=== PATIENT | male | born 1965 | race Caucasian/White ===

== ENCOUNTER → 2020-11-20 | Emergency (ER) | payer SELFPAY ==
[~2020-11-20] VITALS: Ht 162.6 cm; Wt 75.3 kg
[~2020-11-20] MED LIST: ASPIRIN 81 MG CHEW TAB PO ONE; IBUPROFEN 600 MG TAB PO STA
[2020-11-20 22:51] LABS: BASOPHILS # (AUTO) 0.1 (0.0-0.1); BASOPHILS % 0.6 % (0.0-1.0); EOSINOPHILS # (AUTO) 0.1 (0.0-0.4); EOSINOPHILS % 0.5 % (0.0-6.0); HEMATOCRIT 37.6 % (38.2-49.6); HEMOGLOBIN 12.8 g/dL (14.0-18.0); LYMPHOCYTES # (AUTO) 3.6 (1.0-3.2); LYMPHOCYTES % 22.2 % (18.0-39.1); MEAN CORPUSCULAR HEMOGLOBIN 30.4 pg (28-32); MEAN CORPUSCULAR VOLUME 89.3 fL (81-99); MONOCYTES # (AUTO) 1.2 (0.2-0.8); MONOCYTES % 7.6 % (4.4-11.3); NEUTROPHILS % 68.5 % (38.7-80.0); PLATELET COUNT 411 x10e3/uL (140-360); RED BLOOD COUNT 4.21 x10e6/uL (4.3-5.7)
[2020-11-20 23:08] LABS: ALANINE AMINOTRANSFERASE 58 IU/L (0-55); ALBUMIN 4.2 g/dL (3.5-5.0); ALBUMIN/GLOBULIN RATIO 1.4 (0.8-2.0); ALKALINE PHOSPHATASE 72 IU/L (40-150); ANION GAP 16.3 mmol/L (8-16); BLOOD UREA NITROGEN 12 mg/dL (7-26); BUN/CREATININE RATIO 12 (6-25); CALCIUM 9.4 mg/dL (8.4-10.2); CARBON DIOXIDE 22 mmol/L (22-29); CHLORIDE 105 mmol/L (98-107); CREATINE KINASE 113 IU/L (30-200); CREATININE, SERUM 1.01 mg/dL (0.72-1.25); EST GLOMERULAR FILTRATION RATE > 60 ML/MIN (60-); GLUCOSE 104 mg/dL (74-118); POTASSIUM 4.3 mmol/L (3.5-5.1); SODIUM 139 mmol/L (136-145)
[2020-11-20 23:09] LABS: SALICYLATE < 5.0 mg/dL (0-30)
[2020-11-21 00:10] LABS: AMPHETAMINES SCREEN,URINE NEGATIVE (NEGATIVE); BENZODIAZEPINES SCREEN,URINE POSITIVE (NEGATIVE); CLARITY,URINE CLEAR (CLEAR); COLOR,URINE YELLOW (YELLOW); KETONES,URINE NEGATIVE (NEGATIVE); LEUKOCYTE ESTERASE ,URINE NEGATIVE (NEGATIVE); NITRITE,URINE NEGATIVE (NEGATIVE); PHENCYCLIDINE SCREEN,URINE NEGATIVE (NEGATIVE); PROTEIN,URINE DIPSTICK NEGATIVE (NEGATIVE)
[2020-11-21 00:11] LABS: URINE UROBILINOGEN 0.2 mg/dL (0.2 - 1)
[2020-11-21 00:14] LABS: BACTERIA,URINE FEW /HPF; EPITHELIAL CELLS,URINE FEW /LPF; MUCUS,URINE FEW (RARE); RBC,URINE 0-5 /HPF (0-5); WBC,URINE (MAN) 0-5 /HPF (0-5)
[2020-11-25] MEDS: IBUPROFEN 600 MG TAB PO PRN ×3 (08:53→17:46)
== END ==
LOC: ER 23:04
DX: R45.851 Suicidal ideations (principal); I10 Essential (primary) hypertension; E78.5 Hyperlipidemia, unspecified; F41.9 Anxiety disorder, unspecified; F32.9 Major depressive disorder, single episode, unspecified; Z20.822 Contact with and (suspected) exposure to COVID-19
CPT/HCPCS: 36415; 80053; 80307; 80320; 80329; 81001; 82550; 82553; 84484; 85025; 93005; 99282; U0002

== ENCOUNTER → 2020-12-17 | Emergency (ER) | payer SELFPAY ==
[2020-12-17 15:57] LABS: HEMATOCRIT 41.7 % (38.2-49.6); HEMOGLOBIN 14.4 g/dL (14.0-18.0); RED BLOOD COUNT 4.75 x10e6/uL (4.3-5.7)
[2020-12-17 15:58] LABS: MEAN CORPUSCULAR HEMOGLOBIN 30.3 pg (28-32); MEAN CORPUSCULAR HGB CONC 34.5 g/dL (31-35); MEAN CORPUSCULAR VOLUME 87.8 fL (81-99); PLATELET COUNT 367 x10e3/uL (140-360)
[2020-12-17 15:59] LABS: BASOPHILS % 0.4 % (0.0-1.0); LYMPHOCYTES # (AUTO) 1.6 (1.0-3.2); LYMPHOCYTES % 16.4 % (18.0-39.1); MONOCYTES # (AUTO) 0.9 (0.2-0.8); MONOCYTES % 9.4 % (4.4-11.3); NEUTROPHILS # (AUTO) 7.1 (2.1-6.9); NEUTROPHILS % 72.3 % (38.7-80.0)
[2020-12-17 16:00] LABS: EOSINOPHILS # (AUTO) 0.1 (0.0-0.4)
[2020-12-17 16:01] LABS: BLOOD UREA NITROGEN 29 mg/dL (7-26); BUN/CREATININE RATIO 23 (6-25); CARBON DIOXIDE 17 mmol/L (22-29); CHLORIDE 102 mmol/L (98-107); CREATININE, SERUM 1.27 mg/dL (0.72-1.25); EST GLOMERULAR FILTRATION RATE 59 ML/MIN (60-); SODIUM 134 mmol/L (136-145)
[2020-12-17 16:02] LABS: ALANINE AMINOTRANSFERASE 18 IU/L (0-55); ALBUMIN 3.8 g/dL (3.5-5.0); ALBUMIN/GLOBULIN RATIO 1.1 (0.8-2.0); ALKALINE PHOSPHATASE 85 IU/L (40-150); CALCIUM 8.5 mg/dL (8.4-10.2); GLUCOSE 84 mg/dL (74-118)
[2020-12-17 16:05] LABS: SALICYLATE < 5.0 mg/dL (0-30); THYROID STIMULATING HORMONE 0.842 uIU/mL (0.350-4.940)
[2020-12-17 16:09] LABS: CLARITY,URINE CLEAR (CLEAR); COLOR,URINE YELLOW (YELLOW)
[2020-12-17 16:10] LABS: LEUKOCYTE ESTERASE ,URINE NEGATIVE (NEGATIVE); NITRITE,URINE NEGATIVE (NEGATIVE); PROTEIN,URINE DIPSTICK 1+ (NEGATIVE)
[2020-12-17 16:11] LABS: AMPHETAMINES SCREEN,URINE NEGATIVE (NEGATIVE); BENZODIAZEPINES SCREEN,URINE NEGATIVE (NEGATIVE); KETONES,URINE TRACE (NEGATIVE); PHENCYCLIDINE SCREEN,URINE NEGATIVE (NEGATIVE); URINE UROBILINOGEN 0.2 mg/dL (0.2 - 1)
[2020-12-17 16:12] LABS: BACTERIA,URINE FEW /HPF; RBC,URINE 0-5 /HPF (0-5); WBC,URINE (MAN) 0-5 /HPF (0-5)
== END | disposition home or self-care (01) ==
LOC: ER 13:47
DX: Z76.5 Malingerer [conscious simulation] (principal); I10 Essential (primary) hypertension; E78.5 Hyperlipidemia, unspecified; F41.9 Anxiety disorder, unspecified; Z86.718 Personal history of other venous thrombosis and embolism
CPT/HCPCS: 36415; 70450; 80053; 80307; 80320; 80329; 81001; 84436; 84443; 84479; 85025; 93005; 99284